=== PATIENT | male | born 1995 | race Caucasian/White ===

== ENCOUNTER 2018-05-09 08:15 | Inpatient (IN) | payer OTHER ==
[~2018-05-09] VITALS: Ht 180.3 cm; Wt 92.7 kg
[2018-05-09] MEDS ORDERED: NS 1,000 ML IV ONE (08:30)
[2018-05-09 08:39] LABS: BASO # 0.1 10^3/uL (0.0-0.2); BASO % 0.9 % (0.0-1.0); EOS # 0.1 10^3/uL (0.0-0.50); EOS % 0.4 % (0.0-3.0); HEMATOCRIT 47.6 % (42.0-52.0); HEMOGLOBIN 16.6 g/dl (13.5-17.5); LYMPH % 27.4 % (24.0-44.0); MEAN CORPUSCULAR HEMOGLOBIN 32.3 pg (27.0-33.0); MEAN CORPUSCULAR HGB CONC 34.9 g/dl (32.0-36.5); MEAN CORPUSCULAR VOLUME 92.6 fl (80.0-96.0); MONO # 0.6 10^3/uL (0.0-0.8); MONO % 3.9 % (0.0-5.0); NEUTROPHILS # 9.1 10^3/uL (1.8-7.7); NEUTROPHILS % 63.1 % (36.0-66.0); PLATELET COUNT, AUTOMATED 302 10^3/uL (150-450); RED BLOOD COUNT 5.14 10^6/uL (4.30-6.10); WHITE BLOOD COUNT 14.5 10^3/uL (4.0-10.0)
--- NOTE | 2018-05-09 09:02 | REP ---
CT Head without contrast HISTORY: Trauma COMPARISON: None There is no intraparenchymal hemorrhage, acute infarct, mass or midline shift. The ventricular system is normal in appearance. There is no extra cerebral collection. There is no fracture. The visualized sinuses are clear. IMPRESSION: There is no intracranial lesion. Electronically Signed by Mani Stahl MD 05/09/2018 08:54 A
[2018-05-09 09:09] LABS: ALBUMIN 4.3 GM/DL (3.2-5.2); ALT/SGPT 37 U/L (12-78); BILIRUBIN,DIRECT 0.4 MG/DL (0.0-0.2); BILIRUBIN,TOTAL 1.8 MG/DL (0.2-1.0); BLOOD UREA NITROGEN 11 MG/DL (7-18); CALCIUM LEVEL 9.6 MG/DL (8.5-10.1); CARBON DIOXIDE LEVEL 14 MEQ/L (21-32); CHLORIDE LEVEL 104 MEQ/L (98-107); CK-MB VALUE MASS < 1.0 NG/ML (<3.6); CPK CREATINE PHOSPHOKINASE 196 U/L (39-308); CREATININE FOR GFR 2.42 MG/DL (0.70-1.30); FREE T4 0.79 NG/DL (0.76-1.46); GLUCOSE, FASTING 174 MG/DL (70-100); LIPASE 126 U/L (73-393); MAGNESIUM LEVEL 2.7 MG/DL (1.8-2.4); MB/CK RELATIVE INDEX 0.51 (< OR =4); PHOSPHORUS LEVEL 0.9 MG/DL (2.5-4.9); POTASSIUM SERUM 4.6 MEQ/L (3.5-5.1); SODIUM LEVEL 138 MEQ/L (136-145); TOTAL PROTEIN 8.3 GM/DL (6.4-8.2); TROPONIN I 0.07 NG/ML (< 0.10)
[2018-05-09 09:10] LABS: ETHYL ALCOHOL (ETHANOL) < 0.003 % (0.000-0.010); SALICYLATE LEVEL < 1.7 MG/DL (5.0-30.0)
[2018-05-09 09:11] LABS: ACETAMINOPHEN LEVEL < 2.0 UG/ML (10.0-30.0)
--- NOTE | 2018-05-09 09:14 | REP ---
CT cervical spine without contrast HISTORY: Trauma COMPARISON: None There is no acute fracture or subluxation. There is no disc bulge or herniation. The spinal canal and neural foramina are patent. The intervertebral discs and vertebral bodies are normal in height. IMPRESSION: There is no acute fracture or subluxation. Electronically Signed by Mani Stahl MD 05/09/2018 09:06 A
[2018-05-09] MEDS ORDERED: DILUENT IV ONE (09:15)
[2018-05-09] MEDS ORDERED: ACETAMINOPHEN TAB 650MG DOSE (2X325MG) PO ONE (09:15)
[2018-05-09] MEDS ORDERED: NS IV ONE (09:15)
--- NOTE | 2018-05-09 09:17 | REP ---
Chest one-view HISTORY: Syncope Comparison: None The lungs are clear. The heart is normal in size. The pulmonary vasculature is normal in appearance. Impression: No acute disease. Electronically Signed by Mani Stahl MD 05/09/2018 09:09 A
[2018-05-09 09:40] LABS: AMPHETAMINES LEVEL URINE NEGATIVE (NEGATIVE); BARBITURATES URINE NEGATIVE (NEGATIVE); BENZODIAZEPINES URINE NEGATIVE (NEGATIVE); CANNABINOIDS URINE NEGATIVE (NEGATIVE); COCAINE METABOLITE URINE NEGATIVE (NEGATIVE); METHADONE URINE NEGATIVE (NEGATIVE); OPIATES URINE NEGATIVE (NEGATIVE); PHENCYCLIDINE URINE NEGATIVE (NEGATIVE)
[2018-05-09] MEDS ORDERED: ONDANSETRON 4MG/2ML VIAL (J2405) IV ONE (09:45)
[2018-05-09] MEDS ORDERED: ONDANSETRON 4MG/2ML VIAL (J2405) As Ordered ONE (09:47)
[2018-05-09] MEDS ORDERED: CEFEPIME HCL 2 GM in D5W MINI-BAG PLUS 50 ML IV ONE (10:45)
[2018-05-09 10:46] LABS: INFLUENZA A AMPLIFICATION POSITIVE (NEGATIVE); INFLUENZA B AMPLIFICATION NEGATIVE (NEGATIVE)
--- NOTE | 2018-05-09 10:48 | REP ---
CT ABDOMEN AND PELVIS WITHOUT CONTRAST: 05/08/2018. Clinical history: Right-sided abdominal pain, fever. Technique: Noncontrast technique per request with coronal and sagittal reconstructions provided after scanning through the abdomen and pelvis. Findings: CT abdomen: Lung bases show minor dependent atelectatic change without effusion or infiltrate. Heart is not enlarged. There is no pericardial thickening or effusion. There is no hiatal hernia. Liver and spleen are not enlarged. There is no hepatomegaly, splenomegaly, fatty infiltration of the liver, focal hepatic mass or biliary dilatation. Gallbladder is partially contracted but without calcified stone or mass. There is some fluid retained in the stomach but not distending it. Adrenal glands were normal. The pancreas shows no mass, ductal dilatation or inflammatory change. No abnormal calcifications or peripancreatic fluid/adenopathy. Small bowel loops are fluid filled but without dilatation, air-fluid level or inflammatory changes in the mesentery. Abdominal portion of the colon is fluid-filled with scattered stool on the left. There is no dilatation. I see no colitis, diverticulitis, stricture or mass. The aorta is normal. No periaortic or retroperitoneal mesenteric lymphadenopathy. The lung window review of all CT slice levels show no perforation or free air. The kidneys show no stone, mass, cyst, hydronephrosis or perinephric fluid. There is no hydroureter on either side. I see no ureteral stone. The bone windows show lumbar and lower thoracic spine as well as the visualized ribs intact. CT pelvis: The bony sacrum, SI joints, pelvis, hips and ischia were unremarkable. A few tiny bone islands are seen in the right acetabulum. Bladder without wall thickening mass or stone. One tiny air bubble within the bladder which could come from infection with gas forming organism or catheterization it that has been done. I do not see any evidence for a colovesical fistula. No ventral or inguinal hernia. The distal left colon and sigmoid are collapsed. There is no colitis or diverticulitis. Small bowel loops in the pelvis were unremarkable. There are no inflammatory changes about the cecum. Impression: 1. Fluid-filled colon and small bowel loops suggest some gastroenteritis. I cannot see definite colitis, stricture, diverticulitis, inflammatory changes about the cecum or other acute finding. There is no ascites, adenopathy or free air.2. Solid organs in the upper abdomen were unremarkable. 3. There is no renal, ureteral or bladder stone. The gallbladder shows no calcified stones in the stomach without hiatal hernia. Bones intact. Electronically Signed by Steve Cooper MD 05/09/2018 07:48 P
[2018-05-09] MEDS ORDERED: IBUPROFEN 600 MG TAB PO ONE (11:00)
[2018-05-09] MEDS ORDERED: OSELTAMIVIR PHOSPHATE 75 MG CAP (TAMIFLU) PO ONE (11:00)
[2018-05-09 11:24] LABS: APPEARANCE, CSF CLEAR (CLEAR); COLOR, CSF COLORLESS (COLORLESS); CSF TUBE# CELL CNT TUBE 1
[2018-05-09 11:27] LABS: APPEARANCE, CSF CLEAR (CLEAR); COLOR, CSF COLORLESS (COLORLESS); CSF TUBE# CELL CNT TUBE 4
[2018-05-09 11:52] LABS: CSF TUBE# GLU TUBE 2; CSF TUBE# TP TUBE 2; GLUCOSE CSF 97 MG/DL (40-75); TOTAL PROTEIN,CSF 39 MG/DL (15-45)
--- NOTE | 2018-05-09 12:31 | HPE ---
DATE OF ADMISSION: 05/09/2018 PRIMARY CARE PROVIDER: Kristin Oliva CHIEF COMPLAINT: Fall. 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 He is currently in a basic leadership course and working long hours studying. He has had decreased exercise the last 2 to 3 weeks but normally would go for lengthy runs as near as two weeks ago. He was running today and 15 minutes into his run he fell forward, losing consciousness. He denies feeling unwell prior to this other than as outlined above. He denies any prodromal symptoms of palpitations, shortness of breath, nausea, vomiting. He denies any bladder or bowel incontinence following this or any previous episodes of similar passing out episodes. He woke when the ambulance staff were present and they brought him to the emergency room and he reports otherwise remembering everything. At the present time, he tells me that he is still feeling weak but feels better than when he did after his fall. He tells me that he is unsure if he has had sick contacts or not. PAST MEDICAL HISTORY: None. PAST HOSPITALIZATIONS: None. PAST SURGICAL HISTORY: None. FAMILY HISTORY: The patient denies any history of any renal disease or any known medical history. SOCIAL HISTORY: He is an active duty taking a basic leadership course. His last drink was one month ago. He denies any tobacco or illicit drug use. His parents live in [place]. He has no siblings. ALLERGIES: The patient has no known drug allergies. REVIEW OF SYSTEMS: Negative other than history of present illness. OBJECTIVE VITAL SIGNS: Maximum temperature (t-max) 102.1, heart rate 142, blood pressure 124/57, oxygen saturation 92% on 2 liters nasal cannula. GENERAL: He is a muscular, well built, young, man sitting up in bed and speaking in complete sentences. He does not appear to be in acute distress. HEENT: Cranial nerves are grossly intact. He does have dry mucous membranes. There is no elevation in central venous pressure. CARDIOVASCULAR: S1, S2. Tachycardic but regular. RESPIRATORY EXAM: Fairly clear. ABDOMINAL EXAM: Bowel sounds are positive. Abdomen is soft. EXTREMITIES: No clubbing or cyanosis. He does have some abrasions and erythema over his knees following his fall this morning. LABORATORY STUDIES: WBC 14.5, hemoglobin 6.6, platelet count 302. Chemistry panel: Sodium 138, potassium 4.6, chloride 104, bicarbonate 14, BUN 11, anion gap is elevated at 20, creatinine 2.4, lactic acid 14.6, total bilirubin is elevated at 1.8, magnesium level is 2.7. Liver function tests are fairly unremarkable. TSH within normal limits, as is lipase. Toxicology is negative for salicylate, acetaminophen, alcohol, or other substances. UA reveals 2+ protein, 1+ blood, trace ketones. CSF studies are currently pending. Serology: He did positive for influenza A. Microbiology: Blood cultures are currently pending. CSF cultures are currently pending. IMAGING: The patient did have a chest x-ray at his arrival that revealed no acute disease. He has also had a CT scan of the head that revealed no intracranial lesion. He had a cervical spine CT that revealed no acute fracture or subluxation, as well as a CT scan of the abdomen and pelvis, which revealed fluid filled colon and small bowel to suggest some gastroenteritis. No renal, ureteral, or bladder stones. The gallbladder shows no calcified stones. It states that there are no kidney stones, masses or hydronephrosis. No comment on the size. ASSESSMENT AND PLAN: This is a 23-year-old man with influenza A, severe sepsis. 1. Severe sepsis, likely secondary to influenza A. He has leukocytosis, elevated fever, significantly elevated lactic acid. His lactic acid is quite impressively elevated. He is not on any medications at home. It may be a combination of his severe sepsis and increased work of breathing related to his influenza. We will certainly trend it. He is receiving bolus of IV fluids. I will continue him on maintenance fluids following this. He appears to be hemodynamically stable at this time and responding well to fluids. He has been started on Tamiflu, which I will continue. He is also started on broad spectrum antibiotics, which I will continue. Chest x-ray is not suggestive of pneumonia. UA is not suggestive of urinary tract infection (UTI). Blood cultures are pending. CSF studies were also drawn and pending. I will keep him on antibiotic and followup cultures and discontinue as indicated. His history is most suggestive of a viral infection. We will trend his blood work tomorrow. 2. Acute renal failure. Etiology is not immediately clear. He certainly could be dehydrated and in prerenal azotemia, however, it is curious that his BUN is within normal limits and his creatinine is significantly elevated with no prior history of renal disease. I will check a spot protein-creatinine ratio, as well as a fractional excretion of sodium and a renal ultrasound to evaluate the size of his kidneys to ensure that he does not have some long-standing chronic progressive renal disease that is only being discovered during this visit. I am optimistic that his renal function will improve with IV fluids tomorrow. Should it not, we will consider nephrology consultation. 3. Anion gap acidosis secondary to lactic acidosis, as outlined above. 4. Deep vein thrombosis (DVT) prophylaxis. Sequentials and TEDs. DISPOSITION: He is admitted to the progressive care unit for close monitoring given the severe sepsis. We will continue to follow him quite closely.
[2018-05-09] MEDS ORDERED: VANCOMYCIN HCL 1,000 MG, VIAL MATE ADAPTER 1 EACH in D5W 250 ML IV SCH (13:00)
[2018-05-09 13:30] VITALS: BP 104/51
[2018-05-09] MEDS ORDERED: VANCOMYCIN HCL 1,000 MG, VIAL MATE ADAPTER 1 EACH in D5W 250 ML IV ONE (14:00)
[2018-05-09] MEDS: VANCOMYCIN HCL 1,000 MG, VIAL MATE ADAPTER 1 EACH in D5W 250 ML IV SCH (14:07)
--- NOTE | 2018-05-09 14:13 | PHACANCOPD ---
PHARMACY VANCOMYCIN DOSING Pt Demographics Demographics Patient Age:23 , Weight:92.730 , Gender: male Adjusted Body Weight Date: 05/09/18, Adjusted Body Weight: [82] Kg Events Past 24 Hours Events Past 24 Hours: NO: Dialysis, Diuretic Therapy, Change in CrCl, Fever, Elevation in WBC, Pending Diagnostics, Pending Procedures, Other Vancomycin Vancomycin indication: sepsis Vancomycin Target Ranges: 15-20 mcg/ml Vancomycin Load Y/N: Yes Load Dose Date Time Vancomycin Load Dose: 2g Date: 05/09/18 Time: 1300 Vancomycin Dose Date: 05/09/18. Current Vancomycin Dose: [1g iv q18h] Intermittent Dosing?: No Labs Labs Item Value Date Time White Blood Count 14.5 10^3/uL H 05/09/18 0829 Neutrophils # (Auto) 9.1 10^3/uL H 05/09/18 0829 Creatinine 2.42 MG/DL H 05/09/18 0829 Vital Signs Label Value Date Time Patient Temperature 100.0 degrees F 05/09/18 1316 Temperature Source Oral 05/09/18 1316 Micro Microbiology 05/09/18 Blood Culture, Received Pending 05/09/18 Blood Culture, Received Pending 05/09/18 Blood Culture, Ordered Pending 05/09/18 Gram Stain - Final, Resulted 05/09/18 CSF Culture, Resulted Pending Creatinine Clearance Date:05/09/18. Creatinine Clearance: [54ml/min]. Assessment and Plan Maintaining Current Dose?: Yes Reason for dose change: No Dose Change Pharmacist Note Pharmacist Note Date: 05/09/18. Pharmacist note: PT is a 23 year old male currently being treated for sepsis goal trough 10-20mcg/ml. The patient has not been treated with vancomycin here at [facility] in the past. To achieve goal a 2g loading dose was started today @13:00. Maintenance therapy will consist of 1g IV every 18 hours due to current renal functioning of 54ml/min. We will continue to monitor and adjust the dose as needed. [facility] May 09, 2018 14:13
--- NOTE | 2018-05-09 15:07 | REP ---
RENAL SONOGRAPHY: The right kidney measures 11.3 x 6.3 x 4.9 cm with normal echogenicity. There is no hydronephrosis or hydroureter. In the right kidney, central zone close to the pelvis is an echogenic focus measuring 1.3 x 0.9 x 0.9 cm. The left kidney measures 12.1 x 5.6 x 6.4 cm. The echogenicity is normal. No hydronephrosis or hydroureter. There is some doming/humping of the lower pole. The prostate gland measures 3.9 x 2.4 x 2.5 cm and has a volume of 12.2 mL. This is within normal limits. The bladder appears distended. On the prevoid study this measures 12.4 x 10.5 x 9.4 cm equivalent to 800 ml. IMPRESSION: The echogenic focus in the right mid kidney could represent angiomyolipoma. A CT study this same day without contrast does not demonstrate this lesion. It is recommended that this patient have a contrast study of the kidneys for further evaluation of the identified right nodule. Electronically Signed by Sb Acevedo MD 05/09/2018 03:40 P
[2018-05-09 16:00] VITALS: BP 113/57
--- NOTE | 2018-05-09 17:35 | ECGEPIP ---
Stationary ECG Study [facility] - ED Test Date: 2018-05-09 Pat Name: LIANNE ROCA Department: Room: - Gender: M Data Migration Lead: TC : 1995 Requested By: ADWOA Andino Order Number: [id number] Reading MD: Justin Thomson Measurements Intervals [place] Rate: 157 P: 56 AL: 119 QRS: 38 QRSD: 76 T: 30 QT: 267 QTc: 433 Interpretive Statements SINUS TACHYCARDIA WITH SHORT AL INTERVAL POSSIBLE LEFT ATRIAL ENLARGEMENT NO PRIORS FOR COMPARISON Electronically Signed On 05-09-2018 17:34:42 EST by Justin Thomson
[2018-05-09] MEDS: NS 1,000 ML IV SCH (18:19)
[2018-05-09 20:00] VITALS: BP 116/68
[2018-05-09] MEDS: OSELTAMIVIR PHOSPHATE 30MG CAPSULE PO SCH (20:12)
[2018-05-09] MEDS: ACETAMINOPHEN TAB 650MG DOSE (2X325MG) PO PRN (20:13)
[2018-05-09] MEDS ORDERED: OSELTAMIVIR PHOSPHATE 75 MG CAP (TAMIFLU) PO SCH (21:00)
[2018-05-09] MEDS ORDERED: ONDANSETRON 4MG/2ML VIAL (J2405) IV SCH (22:30)
[2018-05-09] MEDS: ONDANSETRON 4MG/2ML VIAL (J2405) IV PRN (22:37)
[2018-05-10] VITALS (7 sets, daily range): BP systolic 126–143; BP diastolic 63–77
[2018-05-10] MEDS: CEFEPIME HCL 1 GM in D5W MINI-BAG PLUS 50 ML IV SCH ×2 (00:03→11:15)
[2018-05-10] MEDS: NS 1,000 ML IV SCH (03:56)
[2018-05-10] MEDS: ACETAMINOPHEN TAB 650MG DOSE (2X325MG) PO PRN (04:00)
[2018-05-10 05:21] LABS: HEMATOCRIT 42.9 % (42.0-52.0); HEMOGLOBIN 15.2 g/dl (13.5-17.5); MEAN CORPUSCULAR HEMOGLOBIN 32.3 pg (27.0-33.0); MEAN CORPUSCULAR HGB CONC 35.4 g/dl (32.0-36.5); MEAN CORPUSCULAR VOLUME 91.1 fl (80.0-96.0); RED BLOOD COUNT 4.71 10^6/uL (4.30-6.10); WHITE BLOOD COUNT 13.1 10^3/uL (4.0-10.0)
[2018-05-10 05:30] LABS: PLATELET COUNT, AUTOMATED 140 10^3/uL (150-450)
[2018-05-10 05:46] LABS: ALBUMIN 3.6 GM/DL (3.2-5.2); BILIRUBIN,TOTAL 3.2 MG/DL (0.2-1.0); CALCIUM LEVEL 7.6 MG/DL (8.5-10.1); CREATININE FOR GFR 2.19 MG/DL (0.70-1.30); GLOMERULAR FILTRATION RATE 39.2 (>60); POTASSIUM SERUM 3.3 MEQ/L (3.5-5.1); TOTAL PROTEIN 6.5 GM/DL (6.4-8.2)
[2018-05-10] MEDS: VANCOMYCIN HCL 1,000 MG, VIAL MATE ADAPTER 1 EACH in D5W 250 ML IV SCH (06:34)
[2018-05-10 07:18] LABS: INR 3.23; PROTHROMBIN TIME 33.7 SECONDS (12.1-14.4)
[2018-05-10] MEDS: OSELTAMIVIR PHOSPHATE 30MG CAPSULE PO SCH (08:03)
[2018-05-10] MEDS ORDERED: POTASSIUM CHLORIDE 10 MEQ SR TABLET PO ONE (09:45)
[2018-05-10] MEDS ORDERED: LR 1,000 ML IV SCH (10:00)
--- NOTE | 2018-05-10 10:19 | IPNPDOC ---
Date Seen The patient was seen on 05/10/18. Progress Note SUBJECTIVE: Patient tells me that he feels about the same with persistent body aches headache and dry cough. OBJECTIVE PHYSICAL EXAMINATION: VITAL SIGNS: Please see below. GENERAL: Muscular young man lying in bed he appears comfortable and in no acute distress HEENT: Cranial nerves II through XII are grossly intact moist mucous membranes CARDIOVASCULAR: S1-S2 regular. RESPIRATORY: Clear to auscultation bilaterally. ABDOMINAL: Bowel sounds are present abdomen soft is nontender even in the right upper quadrant to deep palpation EXTREMITIES: Muscular cyanosis or edema LABORATORY DATA, IMAGING STUDIES, MICROBIOLOGY: Please see below. 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 PROBLEMS: 1. Severe Sepsis and influenza A: The patient does appear to be somewhat improved is no longer tachycardic no longer requiring oxygen he is normotensive lactic acid is improving but not yet resolved I suspect it is somewhat related to increased work of breathing related to his influenza infection remains on broad-spectrum antibacterials as well as atenolol with follow-up his cultures.. 2. Acute renal failure: Does appear to be improving with IV fluids we'll continue with this his elevated creatinine may be related to his significant muscle mass as well curiously his BUN was not elevated at the time of presentation in his urine did show some protein. His renal function fail to recover back to baseline could consider nephrology consultation. 3. Acute hepatitis: The etiology is not completely. I suspect may be related influenza however he did present with normal liver function tests other than an elevated bilirubin and today there in the thousands this could potentially be related to shock liver she did have significantly elevated lactic acid of 14 of the time of admission however he was not profoundly hypotensive upon his presentation in the emergency room as possible he was hypotensive while running when he had his syncopal episode prior to presentation. It is also possible that this is an adverse reaction to Tamiflu he did receive 1 dose of this yesterday the time being I'll hold off on any further Tamiflu and discuss further with the pharmacy alternative options. I will also check a liver ultrasound as well as an INR, will d/w GI and check hepatitis profile although my suspicion for other viral etiologies occurring at this exact time juncture is much lower. 4. Acidosis: Initially lactic acidosis anion gap however the does appear to be improving his chloride is rising I'll switch his fluids to lactated Ringer's and remove any element of hyperchloremic acidosis 5. Thrombocytopenia: Mild likely dilutional as all cell lines drop secondary to aggressive fluid resuscitation 6. Hypokalemia we'll replete by mouth 7. Hypoglycorrhachia: CSF otherwise fairly unremarkable continue to follow cultures DISPOSITION: Pending clinical improvement will continue to monitor very closely he is certainly quite ill I did call his mother once again today and discuss his case in detail with her and answered all questions to his satisfaction and her satisfaction. VS, I&O, 24H, Fishbone Vital Signs/I&O Vital Signs Date Time Temp Pulse Resp B/P (MAP) Pulse Ox O2 Delivery O2 Flow Rate FiO2 05/10/18 08:00 101.3 89 18 126/72 (90) 100 05/09/18 13:30 2.0 05/09/18 13:16 Nasal Cannula I&O- Last 24 Hours up to 6 AM 05/10/18 06:00 Intake Total 770 ml Output Total 1350 ml Balance -580 ml Laboratory Data 24H LABS Laboratory Tests 2 05/09/18 10:49: CSF Appearance CLEAR, CSF Color COLORLESS, CSF WBC (Auto) 1, CSF RBC (Auto) < 2, CSF Cell Count Tube # TUBE 4, CSF Polynuclear WBCs (%) 05/09/18 10:50: CSF Appearance CLEAR, CSF Color COLORLESS, CSF WBC (Auto) 2, CSF RBC (Auto) < 2, CSF Cell Count Tube # TUBE 1, CSF Polynuclear WBCs (%) , CSF Glucose (Tube 1) TUBE 2, CSF Total Protein (Tube 1) TUBE 2, CSF Glucose 97H, CSF Total Protein 39 05/09/18 13:28: Lactic Acid Followup at 4 Hours 2.9*H 05/10/18 04:34: Nucleated Red Blood Cells % (auto) 0.0, Anion Gap 12, Glomerular Filtration Rate 39.2L, Blood Urea Nitrogen 19#H, Creatinine 2.19H, Sodium Level 139, Potassium Level 3.3#L, Chloride Level 109H, Carbon Dioxide Level 18L, Calcium Level 7.6#L, Aspartate Amino Transf (AST/SGOT) 4563H, Alanine Aminotransferase (ALT/SGPT) 3314H, Alkaline Phosphatase 124H, Total Bilirubin 3.2#H, Total Protein 6.5#, Albumin 3.6, Albumin/Globulin Ratio 1.24 05/10/18 06:54: Prothrombin Time 33.7H, Prothromb Time International Ratio 3.23, Lactic Acid Level 2.7*H CBC/BMP Laboratory Tests 05/10/18 04:34 Red Blood Count 4.71, Mean Corpuscular Volume 91.1, Mean Corpuscular Hemoglobin 32.3, Mean Corpuscular Hemoglobin Concent 35.4, Red Cell Distribution Width 12.0, Calcium Level 7.6 #L, Aspartate Amino Transf (AST/SGOT) 4563 H, Alanine Aminotransferase (ALT/SGPT) 3314 H, Alkaline Phosphatase 124 H, Total Bilirubin 3.2 #H, Total Protein 6.5 #, Albumin 3.6 Microbiology Microbiology 05/09/18 Blood Culture, Received Pending 05/09/18 Blood Culture, Received Pending 05/09/18 Blood Culture, Ordered Pending 05/09/18 Gram Stain - Final, Resulted 05/09/18 CSF Culture, Resulted Pending 05/09/18 MRSA Screen, Received Pending VINNIE DAMIAN MD May 10, 2018 10:19
[2018-05-10] MEDS ORDERED: IBUPROFEN 400 MG TAB PO ONE (10:45)
[2018-05-10] MEDS ORDERED: [UNRECOGNIZED DRUG - OTHER] INH SCH (11:00)
[2018-05-10 11:34] LABS: INR 3.59; PROTHROMBIN TIME 36.7 SECONDS (12.1-14.4)
[2018-05-10] MEDS ORDERED: PHYTONADIONE 5 MG TAB PO ONE (12:00)
[2018-05-10] MEDS: ONDANSETRON 4MG/2ML VIAL (J2405) IV PRN (12:21)
[2018-05-10 12:23] LABS: ALBUMIN 3.8 GM/DL (3.2-5.2); BILIRUBIN,DIRECT 1.2 MG/DL (0.0-0.2); BILIRUBIN,TOTAL 3.9 MG/DL (0.2-1.0); TOTAL PROTEIN 6.5 GM/DL (6.4-8.2)
--- NOTE | 2018-05-10 15:04 | DSES ---
DATE OF ADMISSION: 05/09/2018 DATE OF DISCHARGE: 05/10/2018 DISCHARGE DIAGNOSIS: Acute liver failure. SECONDARY DIAGNOSES: Acute renal failure. Rhabdomyolysis. Lactic acidosis. Anion gap acidosis. Coagulopathy. Leukocytosis. Fever. Influenza A. Severe sepsis. 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 Who on 05/08/2018 began having cough, chills and body aches. He did not think much of it. On 05/09/2018, he went for a run, which is not atypical for him. About 15 minutes into his run he collapsed. Emergency medical services (EMS) was called and he was aroused prior to arriving at the hospital. The patient did present in a septic-like picture with leukocytosis 14, fever of 102 and significant tachycardia above 120. He was treated as per sepsis protocol. Blood cultures, urinalysis (UA),lumbar puncture (LP) were all completed without any identifiable source. He did receive aggressive IV fluid resuscitation and did improve. Influenza A swab did return positive. He was noted to have an elevated creatinine of 2.4 with a normal BUN strangely. He did have normal liver function tests and CPK upon arrival and was treated continuously with fluids. The following morning, he reported persistent symptoms of body aches, headaches, and generalized feeling unwell and with a dry cough. He did not require oxygen. He remained hemodynamically stable. At no point was he ever in shock. He did receive one dose of Tamiflu. The following morning, he was found to be in acute liver failure with AST and ALT at 4500 and approximately 3500 with rhabdomyolysis of 39,000. His renal functions improved slightly with a creatinine of 2.1 and lactic acidosis had improved. However, as the day progressed, his liver function tests continued to decline. His lactic acidosis continued to rise as did his INR. He was given 10 mg by mouth vitamin K. [facility] and his case was discussed with several hepatologists in [place] at [facility], as well as [place]. He was accepted to all facilities. [facility] initially did not have a bed but then called me back and informed me that they did have a bed and he was transferred there to their medical intensive care unit under the care of Dr. Curry with Dr. Henrik Ceja who I have spoken to as well to be in a facility where he could have continued intensive care monitoring and possibly infectious disease consultation as well as a transplant consult. The patient's mother was called and updated and the patient was informed of this as well. At this time, he remains hemodynamically stable. His vitals are stable and he is dispositioned to [facility]. Please see today's progress note for further details. Greater than 3 hours spent coordinating care.
[2018-05-10] MEDS ORDERED: D5W IV ONE ×2 (16:00→17:00)
[2018-05-10] MEDS ORDERED: ACETYLCYSTEINE IV ONE ×2 (16:00→17:00)
--- NOTE | 2018-05-10 16:08 | REP ---
Portal vein at the Doppler ultrasound: The the flow velocity in the portal vein is upper normal. The flow direction in the portal vein is hepatopetal. The main portal vein measures 10.6 ml in diameter which is normal. Impression: Normal portal vein Doppler ultrasound. Complete abdominal ultrasound: The patient has influenza and acute hepatitis. There is a negative Dumont's sign to transducer pressure. There is no cholelithiasis, gallbladder wall thickening or pericholecystic fluid. There is no intrahepatic or extrahepatic biliary duct dilatation. The common biliary duct measures 2.3 mm in diameter. The liver is slightly enlarged measuring 16.3 cm craniocaudad in the midclavicular line. The hepatic parenchyma is homogeneous. There are no hepatic masses. The visualized areas of the pancreatic head and body are unremarkable. The tail is obscured by bowel. The spleen measures 11.5 cm length and is normal size. The right kidney measures 11.0 x 5.5 x 5.3 cm. Left kidney measures 11.1 x 4.9 x 5.2 cm. The kidneys are normal size. Renal cortical echogenicity is hyperechoic bilaterally. This is compatible with medical renal disease. There are no renal solid or cystic masses. There are no calculi. There is no hydronephrosis. There is a trace of left perinephric fluid. The aorta is obscured by bowel gas. The study is technically difficult as the patient had labor, breathing throughout the exam. Impression: Slightly enlarged liver. No hepatic mass. Mildly echogenic renal cortices bilaterally compatible with medical renal disease. No hydronephrosis. The Electronically Signed by Douglas Garcia MD 05/10/2018 04:00 P
[2018-05-10] MEDS ORDERED: ONDANSETRON 4MG/2ML VIAL (J2405) IV ONE (17:00)
[2018-05-10] MEDS ORDERED: ACETYLCYSTEINE 9,000 MG in D5W 1,000 ML IV ONE (21:00)
[2018-05-12 13:17] LABS: HEPATITIS A ANTIBODY IGM NEGATIVE (NEGATIVE); HEPATITIS B CORE ANTIBODY IGM NEGATIVE (NEGATIVE); HEPATITIS B SURFACE ANTIGEN NEGATIVE (NEGATIVE); HEPATITIS C VIRUS ABY INDEX < 0.0 INDEX (<0.8)
== END 2018-05-10 16:53 | disposition short-term general hospital (02) | DRG 871 ==
LOC: M ED 08:15 → M ED INP 11:35 → M PCU 13:30 → M ICU 05-10 13:29
PROVIDERS: ADMIT Internal Medicine; ATTEND Internal Medicine
DX: A41.9 Sepsis, unspecified organism (principal); K72.00 Acute and subacute hepatic failure without coma; E87.2 Acidosis; N17.9 Acute kidney failure, unspecified; B17.9 Acute viral hepatitis, unspecified; M62.82 Rhabdomyolysis; R65.20 Severe sepsis without septic shock; J10.1 Influenza due to other identified influenza virus with other respiratory manifestations; D69.6 Thrombocytopenia, unspecified; E87.6 Hypokalemia

== ENCOUNTER → 2019-02-24 | Outpatient (CLI) | payer OTHER ==
--- NOTE | 2019-02-24 09:08 | PFTRPT ---
Site: [facility], [address] [place] [address], [id number] ID: [id number] Name: LIANNE ROCA Visit Date: 02/24/2019 Second ID: [id number] Referring Doctor: Steve Ayoub PA-C Reviewing Doctor: Trevon Flower MD [employer]: Mary VILLAFANA RRT Age: 23 : 1995 Sex: Male Race: Height: 72.00 Inches Weight: 220.00 Lbs BSA: 2.22 Order IDs: [id number] Requested Test(s): <RESP-PFT.DLCO> Diagnosis: R05 test meet the ATS standards for acceptability and repeatability. Pt was given four puffs of albuterol for postbronchodilator. Review Status: Not Reviewed Pre-Bronch Post-Bronch Pred Actual %Pred Actual %Chng SPIROMETRY FVC (L) 5.88 5.46 92 5.29 -3 FEV1 (L) 4.81 4.36 90 4.41 1 FEV1/FVC (%) 83 80 96 83 4 FEF 25% (L/sec) 8.97 8.69 96 7.92 -8 FEF 50% (L/sec) 5.98 4.87 81 6.04 23 FEF 75% (L/sec) 2.35 1.79 76 1.81 FEF 25-75% (L/sec) 4.86 4.06 83 4.39 8 FEF Max (L/sec) 10.67 8.80 82 8.24 -6 FIVC (L) 5.36 5.18 -3 FIF 50% (L/sec) 5.61 6.64 118 5.82 -12 FIF Max (L/sec) 6.86 6.18 -9 MVV (L/min) 190 110 57 Expiratory Time (sec) 6.77 6.82 Back Extrap Vol (L) 0.19 0.13 -32 Time To FEFmax (sec) 0.154 0.106 -31 LUNG VOLUMES SVC (L) 5.64 5.44 96 IC (L) 3.71 3.92 105 ERV (L) 1.93 1.52 78 TGV (L) 3.58 3.02 84 RV (Pleth) (L) 1.65 1.51 91 TLC (Pleth) (L) 7.29 6.94 95 RV/TLC (Pleth) (%) 22 22 98 DIFFUSION DLCOunc (ml/min/mmHg) 37.07 32.38 87 DLCOcor (ml/min/mmHg) 37.07 31.86 85 DL/VA (ml/min/mmHg/L) 5.09 4.98 97 VA (L) 7.29 6.40 87 BHT (sec) 10.69 IVC (L) 4.79 TLC (SB) (L) 6.55 AIRWAYS RESISTANCE Raw (cmH2O/L/s) 1.45 0.81 56 Gaw (L/s/cmH2O) 1.03 1.24 120 sRaw (cmH2O*s) 4.76 3.14 65 sGaw (1/cmH2O*s) 0.20 0.32 160 BLOOD GASES Hgb (gm/dL) 15.2
== END ==
LOC: M CARPUL 08:33
PROVIDERS: ATTEND Physician Assistant
DX: R05 Cough (principal)